=== PATIENT | female | born 1970 | race African-American/Black ===

== ENCOUNTER → 2016-07-24 | Outpatient (CLI) | payer OTHER ==
--- NOTE | ~2016-07-24 | MY11 ---
[facility] A Service of [facility] [place] RADIOLOGY TEXT RESULTS PATIENT: ISREAL DAVID LOCATION: [facility] : 70 UNIT #: [id number] AGE: [address]: Irma Patterson MD SEX: F ORDER DR: [id number] [facility] [address] [place], [place] [address] [id number] O MR#: [id number] Acc #: [id number] NAME: ISREAL DAVID : 1970 SEX: F STUDY DATE/TIME: 07/24/2016 11:24 UNIT: [facility] ROOM: STUDY DESCRIPTION: MY Mammogram Screening [facility] Attending Physician: Irma Patterson M.D. Referring Physician: Irma Patterson M.D. Ordering Physician: Irma Patterson M.D. Primary Care Physician: Irma Patterson M.D. MEDICAL IMAGING REPORT This report is preliminary unless electronic signature is present EXAM Digital screening mammogram, 07/24/2016, [facility]. HISTORY 46-year-old woman no risk elevation. Annual screen. COMPARISON 02/02/13, 07/13/15. TECHNIQUE Digital imaging of each breast was completed utilizing screening protocol. Review includes FDA-approved CAD device. FINDINGS Breast parenchyma is dense with a combination fibroglandular opacities and mild parenchymal nodularity. Occasional benign calcification noted. I see no suspicious microcalcifications, and no suspicious mass characteristics. Mild parenchymal dominance upper hemisphere right breast is unchanged. There is no architectural disturbance. IMPRESSION Negative stable mammogram. Annual screening recommended. Patients over the age of 40 are entered into a reminder system with target due date for the next mammogram. A result letter will also be sent to the patient. BIRADS: 1 Negative. Dictated by... Eulalio Conklin M.D. [facility] A Service of [facility] RADIOLOGY TEXT RESULTS PATIENT: ISREAL DAVID LOCATION: [facility] : 70 UNIT #: [id number] AGE: [address]: Irma Patterson MD SEX: F ORDER DR: THIS IS AN ELECTRONICALLY VERIFIED REPORT Eulalio Conklin M.D. at 07/26/2016 8:08 AM Deyvi TD: 07/24/2016 15:17 JOB #: [id number] MEDICAL IMAGING REPORT Page 1 of 1 COPY
== END | disposition home or self-care (01) ==
LOC: CWCC 10:48
DX: Z12.31 Encounter for screening mammogram for malignant neoplasm of breast (principal)
CPT/HCPCS: G0202